=== PATIENT | female | born 1945 | race Caucasian/White ===

== ENCOUNTER 2021-07-14 09:57 | Outpatient (CLI) | payer MEDICARE | END 2021-07-14 09:58 | disposition home or self-care (01) | LOC: CSHMAMMO 09:57 | PROVIDERS: ATTEND Nurse Practitioner Family | DX: Z13.820 Encounter for screening for osteoporosis (principal); N95.9 Unspecified menopausal and perimenopausal disorder | CPT/HCPCS: 77080 ==